=== PATIENT | female | born 1930 | race Caucasian/White ===

== ENCOUNTER 2017-01-22 09:58 | Inpatient (IN) | payer MEDICARE ==
[~2017-01-22] VITALS: Ht 162.6 cm; Wt 44.9 kg
[~2017-01-22 09:58] MED LIST: /ONDA4TA; CEPACOL; COLA100C2; COUM2.5T11 PO; DULC10SU2 PR; FRAGMIN; HALD5INJ2 PO; KLOR8TAB; LEVO25TABR; LISI5TAB; MILKSUS; MILKSUS PO; MIRA3350 PO; PLAV75TA2; ROPI1TA PO; SENO8.6T2 PO; THERGRAN; TYL325; TYLE325T5 PO; ULTR50TA PO; VICO5TAB; XOPE1.252; ZANT150T; ZOCO20TA
[2017-01-22] MEDS ORDERED: LORA-376 PO (10:19)
[2017-01-22] MEDS ORDERED: QUET5TAB PO (10:19)
[2017-01-22] MEDS ORDERED: QUET1TAB8 PO (10:19)
[2017-01-22] MEDS ORDERED: LORA1TAB12 PO (10:19)
[2017-01-22] MEDS ORDERED: NS 1,000 ML IV ONE (12:00)
[2017-01-22 12:53] LABS: BASO % 0.3 % (0.0-1.0); EOS # 0.2 K/mm3 (0.0-0.50); EOS % 0.9 % (0.0-3.0); LARGE UNSTAINED CELL # 0.1 K/mm3 (0.0-0.4); LARGE UNSTAINED CELL % 0.7 % (0.0-4.0); LYMPH # 0.7 K/mm3 (1.5-4.5); LYMPH % 3.6 % (24.0-44.0); MEAN CORPUSCULAR HEMOGLOBIN 30.2 pg (27.0-33.0); MEAN CORPUSCULAR HGB CONC 31.9 g/dl (32.0-36.5); MEAN CORPUSCULAR VOLUME 94.6 fl (80.0-96.0); MONO # 0.6 K/mm3 (0.0-0.8); MONO % 3.4 % (0.0-5.0); NEUTROPHILS # 15.1 K/mm3 (1.8-7.7); NEUTROPHILS % 91.1 % (36.0-66.0); PLATELET COUNT, AUTOMATED 165 k/mm3 (150-450); RED CELL DISTRIBUTION WIDTH 13.8 % (11.5-14.5); WHITE BLOOD COUNT 16.5 K/mm3 (4.0-10.0)
[2017-01-22 13:00] LABS: ALBUMIN 3.3 GM/DL (3.2-5.2); ALBUMIN/GLOBULIN RATIO 1.06 (1.00-1.93); ALKALINE PHOSPHATASE 72 U/L (45-117); ALT/SGPT 31 U/L (12-78); ANION GAP 10 MEQ/L (8-16); AST/SGOT 28 U/L (15-37); BILIRUBIN,DIRECT 0.1 MG/DL (0.0-0.2); BILIRUBIN,TOTAL 0.5 MG/DL (0.2-1.0); BLOOD UREA NITROGEN 44 MG/DL (7-18); CALCIUM LEVEL 9.2 MG/DL (8.8-10.2); CARBON DIOXIDE LEVEL 29 MEQ/L (21-32); CHLORIDE LEVEL 111 MEQ/L (98-107); CREATININE FOR GFR 1.51 MG/DL (0.55-1.02); GLOMERULAR FILTRATION RATE 34.9 (>32); GLUCOSE, FASTING 80 MG/DL (83-110); POTASSIUM SERUM 4.6 MEQ/L (3.5-5.1); SODIUM LEVEL 150 MEQ/L (136-145); TOTAL PROTEIN 6.4 GM/DL (6.4-8.2)
[2017-01-22 13:05] LABS: ABG BASE EXCESS 3.4 (-2.0-2.0); ABG PARTIAL PRESSURE CO2 42.7 mmHg (35.0-45.0); ABG PARTIAL PRESSURE O2 60.7 mmHg (75.0-100.0); ABG STANDARD HCO3 27.4 MEQ/L (22.0-26.0); ABG TOTAL CO2 29.3 MEQ/L (23.0-31.0); ABG pH (ARTERIAL) 7.435 UNITS (7.350-7.450)
--- NOTE | 2017-01-22 13:17 | REP ---
CT HEAD WITHOUT CONTRAST: HISTORY: Altered mental status. COMPARISON: 11/21/2014 Areas of decreased attenuation are present in the periventricular and subcortical white matter. This represents small vessel ischemic disease. There is no intraparenchymal hemorrhage, mass, or midline shift. The ventricular system and cortical sulci as well as subarachnoid space in the posterior fossa are dilated consistent with moderate volume loss. There is no extracerebral collection. The visualized sinuses are clear. IMPRESSION: 1. Small vessel ischemic disease. 2. Moderate volume loss. Signed by Michele Harp MD 01/22/2017 02:09 P
[2017-01-22 13:20] LABS: METHADONE URINE NEGATIVE (NEGATIVE)
--- NOTE | 2017-01-22 13:28 | REP ---
Portable chest: Single view. History: Altered mental status. Comparison study: June 07, 2014. Findings: Moderate elevation is again noted in the right hemidiaphragm. Mildly enlarged heart is seen. There are skin folds overlying the chest bilaterally. There is no evidence of pneumothorax or hydrothorax. No definite infiltrate is seen. Pulmonary vasculature is not increased. The aorta is calcific. Impression: Mild cardiomegaly. Elevated right hemidiaphragm unchanged. No acute disease. Signed by Isaiah Srinivasan MD 01/22/2017 04:25 P
[2017-01-22] MEDS ORDERED: cefTRIAXone SOD 1 GM in D5W MINI-BAG PLUS 50 ML IV ONE (13:30)
[2017-01-22] MEDS ORDERED: MOM 30ML SUSPENSION UDC PO PRN (14:45)
[2017-01-22] MEDS ORDERED: ONDANSETRON 4MG/2ML VIAL (J2405) IV PRN (14:45)
[2017-01-22] MEDS ORDERED: ONDANSETRON 4 MG TAB (S0181) PO PRN (14:45)
[2017-01-22] MEDS ORDERED: NS 0.45% 1,000 ML IV SCH ×2 (14:45→17:45)
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
[2017-01-22 16:23] VITALS: BP 162/98
[2017-01-22] MEDS: ACETAMINOPHEN TAB 650MG DOSE (2X325MG) PO PRN (16:39)
[2017-01-22] MEDS: LORazepam 1 MG TAB PO SCH (20:04)
[2017-01-22] MEDS: QUEtiapine FUMARATE 50 MG TAB PO SCH (20:04)
--- NOTE | 2017-01-22 20:35 | ECGEPIP ---
Stationary ECG Study [facility] - ED Test Date: 2017-01-22 Pat Name: SHERITA BROWN Department: Room: - Gender: F Junior Automation Engineer: oren : [id number] Requested By: Shelton Muller Order Number: [id number] Reading MD: Shelton Muller Measurements Intervals [place] Rate: 94 P: 91 TX: 194 QRS: 10 QRSD: 88 T: 31 QT: 351 QTc: 440 Interpretive Statements SINUS RHYTHM WITH OCCASIONAL SUPRAVENTRICULAR PREMATURE COMPLEXES LOW QRS VOLTAGE LIMB LEADS NONSPECIFIC ST T WAVE CHANGES CW 06/08/14 - RATE INCREASED NONSPECICIC ST T WAVE CHANGES Electronically Signed On 01-22-2017 20:35:06 EST by Shelton Muller
[2017-01-22 22:00] VITALS: BP 131/71
[2017-01-23 06:00] VITALS: BP 163/80
[2017-01-23 06:44] LABS: BASO % 0.3 % (0.0-1.0); EOS # 0.2 K/mm3 (0.0-0.50); EOS % 1.3 % (0.0-3.0); LARGE UNSTAINED CELL # 0.2 K/mm3 (0.0-0.4); LARGE UNSTAINED CELL % 1.7 % (0.0-4.0); LYMPH # 0.8 K/mm3 (1.5-4.5); LYMPH % 4.9 % (24.0-44.0); MEAN CORPUSCULAR HEMOGLOBIN 30.2 pg (27.0-33.0); MEAN CORPUSCULAR HGB CONC 32.2 g/dl (32.0-36.5); MEAN CORPUSCULAR VOLUME 93.9 fl (80.0-96.0); MONO # 0.5 K/mm3 (0.0-0.8); MONO % 4.6 % (0.0-5.0); NEUTROPHILS # 10.2 K/mm3 (1.8-7.7); NEUTROPHILS % 87.2 % (36.0-66.0); PLATELET COUNT, AUTOMATED 153 k/mm3 (150-450); RED CELL DISTRIBUTION WIDTH 13.8 % (11.5-14.5); WHITE BLOOD COUNT 11.6 K/mm3 (4.0-10.0)
[2017-01-23] MEDS ORDERED: D5W 1,000 ML IV SCH (07:00)
[2017-01-23 07:02] LABS: CALCIUM LEVEL 8.6 MG/DL (8.8-10.2); CREATININE FOR GFR 1.16 MG/DL (0.55-1.02); GLOMERULAR FILTRATION RATE 47.3 (>32); MAGNESIUM LEVEL 2.1 MG/DL (1.8-2.4); POTASSIUM SERUM 3.6 MEQ/L (3.5-5.1)
[2017-01-23] MEDS: QUEtiapine FUMARATE 100 MG TAB PO SCH ×2 (09:11→12:50)
[2017-01-23] MEDS: LORazepam 0.5 MG TAB PO SCH ×2 (09:12→12:50)
[2017-01-23] MEDS: cefTRIAXone SOD 1 GM in D5W MINI-BAG PLUS 50 ML IV SCH (12:57)
[2017-01-23 14:00] VITALS: BP 103/57
[2017-01-23] MEDS: D5W 1,000 ML IV SCH (17:00)
[2017-01-23] MEDS: QUEtiapine FUMARATE 50 MG TAB PO SCH (20:36)
[2017-01-23] MEDS: LORazepam 1 MG TAB PO SCH (20:36)
[2017-01-23 22:00] VITALS: BP 133/74
[2017-01-24 05:54] LABS: BASO % 0.5 % (0.0-1.0); EOS # 0.3 K/mm3 (0.0-0.50); EOS % 4.3 % (0.0-3.0); LARGE UNSTAINED CELL # 0.3 K/mm3 (0.0-0.4); LARGE UNSTAINED CELL % 4.4 % (0.0-4.0); LYMPH # 0.8 K/mm3 (1.5-4.5); LYMPH % 11.1 % (24.0-44.0); MEAN CORPUSCULAR HEMOGLOBIN 29.4 pg (27.0-33.0); MEAN CORPUSCULAR HGB CONC 32.2 g/dl (32.0-36.5); MEAN CORPUSCULAR VOLUME 91.3 fl (80.0-96.0); MONO # 0.4 K/mm3 (0.0-0.8); MONO % 6.2 % (0.0-5.0); NEUTROPHILS # 5.3 K/mm3 (1.8-7.7); NEUTROPHILS % 73.6 % (36.0-66.0); PLATELET COUNT, AUTOMATED 152 k/mm3 (150-450); RED CELL DISTRIBUTION WIDTH 13.3 % (11.5-14.5); WHITE BLOOD COUNT 7.2 K/mm3 (4.0-10.0)
[2017-01-24 06:00] VITALS: BP 136/75
[2017-01-24 06:04] LABS: ANION GAP 8 MEQ/L (8-16); BLOOD UREA NITROGEN 21 MG/DL (7-18); CALCIUM LEVEL 7.8 MG/DL (8.8-10.2); CARBON DIOXIDE LEVEL 31 MEQ/L (21-32); CHLORIDE LEVEL 102 MEQ/L (98-107); CREATININE FOR GFR 0.92 MG/DL (0.55-1.02); GLOMERULAR FILTRATION RATE > 60.0 (>32); GLUCOSE, FASTING 99 MG/DL (83-110); MAGNESIUM LEVEL 1.9 MG/DL (1.8-2.4); POTASSIUM SERUM 3.5 MEQ/L (3.5-5.1); SODIUM LEVEL 141 MEQ/L (136-145)
[2017-01-24] MEDS: D5W 1,000 ML IV SCH ×3 (06:35→17:32)
--- NOTE | 2017-01-24 08:52 | IPN ---
DATE: 01/23/2017 Patient seen and examined. She is nonverbal at baseline. Moans at the bedside. Patient's caregiver at the bedside, calms her down. She has purposeful movements but does not respond to questions. She had a fever of 101.3 at 1623 hours yesterday, current temperature is 97.1. Temperature 97.1, pulse 81, respiratory rate 16, blood pressure 163/80, 93% on room air. Generally, patient is demented, does not follow commands but with purposeful movement. Moans at the bedside and has her eyes closed and non-cooperative with examination. Edentulous. Lungs are clear to auscultation. No wheezing, rales or rhonchi. Dry mucous membranes. Heart: S1, S2, sinus rhythm. Abdomen is soft, nontender, nondistended. Extremities have no pitting edema. LABORATORY DATA: White count 11.6, hemoglobin 11, hematocrit 35, platelet count 153. Sodium currently is 147, potassium 3.6, chloride 109, bicarbonate 31, BUN 36, creatinine 1.16, glucose of 87. Troponin 0.18. Microbiology: Urine culture is pending. ASSESSMENT AND PLAN: This is an 86-year-old female with history of chronic dementia with 24/7 care at home, hyperlipidemia, hypothyroidism, no longer on replacement therapy was brought in as she was unable to be awakened and she was to have severe dehydration and a urinary tract infection (UTI). CURRENT ISSUES: 1. Severe dehydration, hypernatremia, acute kidney injury secondary to decrease in oral intake most likely secondary to severe Alzheimer's dementia. Patient is 24/7 care at home but despite prompting patient does not prompting patient does not take adequate oral intake. At this time, patient has been placed on intravenous (IV) fluids with recheck of metabolic panel every 6 hours with goal change in sodium of 10-12 mEq every 24 hours. Adjust patient's IV fluid rate according to the rate of plug overwrap machine tender the next 24 hours. She is currently nonconversant, non-cooperative and per the caregiver at the bedside at baseline. 2. Acute kidney injury secondary to severe dehydration due to poor oral intake and sever Alzheimer's dementia. Despite 24/7 care, patient refuses to take oral intake. I have discussed this case with the patient's daughter at bedside regarding possible percutaneous endoscopic gastrostomy (PEG) tube placement, which we all agree will not be beneficial as she is most likely to pull on it and will cause harm and suffering. At this time, she has deferred all decision making to the patient's and her father. 3. Urinary tract infection. Currently on IV ceftriaxone. Await culture results prior to changing. 4. Severe Alzheimer's dementia. Has 08/06 care at home. Most appropriate for DO NOT INTUBATE, DO NOT RESUSCITATE, but will discuss the patient's . She is currently still a FULL CODE. 5. Abnormal troponins most likely secondary to demand mediated ischemia from severe dehydration and urinary tract infection. Continue to monitor. She is currently demented, unable to provide any history. 6. Hypothyroidism. Not on replacement therapy.
[2017-01-24] MEDS: QUEtiapine FUMARATE 100 MG TAB PO SCH ×2 (09:19→11:56)
[2017-01-24] MEDS: LORazepam 0.5 MG TAB PO SCH ×2 (09:19→11:56)
[2017-01-24 09:30] VITALS: BP 124/68
[2017-01-24] MEDS: cefTRIAXone SOD 1 GM in D5W MINI-BAG PLUS 50 ML IV SCH (14:34)
[2017-01-24] MEDS: QUEtiapine FUMARATE 50 MG TAB PO SCH (20:21)
[2017-01-24] MEDS: LORazepam 1 MG TAB PO SCH (20:21)
[2017-01-24 22:00] VITALS: BP 124/60
[2017-01-25] MEDS: D5W 1,000 ML IV SCH ×2 (04:49→15:00)
[2017-01-25 06:00] VITALS: BP 145/76
[2017-01-25 06:16] LABS: BASO # 0.1 K/mm3 (0.0-0.2); BASO % 0.8 % (0.0-1.0); EOS # 0.3 K/mm3 (0.0-0.50); EOS % 4.1 % (0.0-3.0); LARGE UNSTAINED CELL # 0.3 K/mm3 (0.0-0.4); LARGE UNSTAINED CELL % 3.5 % (0.0-4.0); LYMPH % 13.4 % (24.0-44.0); MEAN CORPUSCULAR HEMOGLOBIN 29.7 pg (27.0-33.0); MONO # 0.6 K/mm3 (0.0-0.8); MONO % 7.4 % (0.0-5.0); NEUTROPHILS # 5.5 K/mm3 (1.8-7.7); NEUTROPHILS % 70.8 % (36.0-66.0); PLATELET COUNT, AUTOMATED 136 k/mm3 (150-450); RED CELL DISTRIBUTION WIDTH 13.1 % (11.5-14.5); WHITE BLOOD COUNT 7.7 K/mm3 (4.0-10.0)
[2017-01-25 06:51] LABS: ANION GAP 7 MEQ/L (8-16); BLOOD UREA NITROGEN 15 MG/DL (7-18); CALCIUM LEVEL 8.2 MG/DL (8.8-10.2); CARBON DIOXIDE LEVEL 29 MEQ/L (21-32); CHLORIDE LEVEL 101 MEQ/L (98-107); GLOMERULAR FILTRATION RATE > 60.0 (>32); GLUCOSE, FASTING 96 MG/DL (83-110); MAGNESIUM LEVEL 1.8 MG/DL (1.8-2.4); POTASSIUM SERUM 3.8 MEQ/L (3.5-5.1); SODIUM LEVEL 137 MEQ/L (136-145)
[2017-01-25] MEDS: LORazepam 0.5 MG TAB PO SCH ×2 (08:59→13:05)
[2017-01-25] MEDS: QUEtiapine FUMARATE 100 MG TAB PO SCH ×2 (08:59→13:05)
--- NOTE | 2017-01-25 12:51 | IPN ---
DATE: 01/24/2017 Patient is nonverbal at baseline. She is much more awake and alert this morning. Trying to get out bed and sitter trying to redirect her. Patient has a doll at the bedside, which she tends to. She is moaning, does not answer or follow commands. Temperature 96.8, pulse 71, respiratory rate 17, blood pressure 136/75, 95% on room air. Anicteric sclerae. No jaundice. No jugular venous distention. Lungs are clear to auscultation. No wheezing, rales or rhonchi. Heart: S1, S2, sinus rhythm. Abdomen is soft, nontender, nondistended. Extremities have no pitting edema. LABORATORY DATA: White count 7.3, hemoglobin 10, hematocrit 32, platelet count 152. Sodium 141, potassium 3.5, chloride 102, bicarbonate 31, BUN 21, creatinine 0.92, glucose of 99, magnesium of 1.9. MICROBIOLOGY: E coli, urine culture, which is pansensitive. Two sets of blood culture negative. ASSESSMENT AND PLAN: This is an 86-year-old female who is still a FULL CODE, history of chronic dementia with 24/7 care at home, hyperlipidemia, hypothyroidism, no longer on replacement was brought in due to inability to be awakened, was found to have severe dehydration and urinary tract infection with Escherichia coli. 1. Severe dehydration, hypernatremia, acute kidney injury secondary to decreased oral intake secondary to severe Alzheimer's dementia. Patient has 24/7 care at home and despite encouragement, patient refused to take oral intake and cannot be forced. She has presented with severe dehydration, which she responded well to intravenous (IV) fluid hydration. She is still not eating as much, according to the sitter at the bedside, ate about 10% of her food this morning. Therefore, we will continue with IV fluids for now. 2. E coli. 3. Acute metabolic encephalopathy secondary to severe dehydration and sepsis secondary to urinary tract infection (UTI). At this time, patient is being treated with ceftriaxone for UTI, continued on IV fluid hydration, which has significantly improved. 4. Severe Alzheimer's dementia. Currently difficult to manage, requiring a sitter. Patient responds well to her caregiver, who will be arriving later this morning. She is continued on as needed Ativan, Seroquel, full supportive care. DISPOSITION: May discharge home on Thursday if medically stable.
[2017-01-25] MEDS: cefTRIAXone SOD 1 GM in D5W MINI-BAG PLUS 50 ML IV SCH (13:05)
[2017-01-25] MEDS: LORazepam 1 MG TAB PO SCH (20:47)
[2017-01-25] MEDS: QUEtiapine FUMARATE 50 MG TAB PO SCH (20:47)
[2017-01-25 22:00] VITALS: BP 147/84
[2017-01-25] MEDS: ACETAMINOPHEN TAB 650MG DOSE (2X325MG) PO PRN (22:21)
[2017-01-26] MEDS: D5W 1,000 ML IV SCH ×2 (01:38→12:12)
[2017-01-26] MEDS ORDERED: LORazepam 0.5 MG TAB PO ONE (02:00)
[2017-01-26 05:59] LABS: BASO # 0.1 K/mm3 (0.0-0.2); BASO % 0.8 % (0.0-1.0); EOS # 0.3 K/mm3 (0.0-0.50); LARGE UNSTAINED CELL # 0.3 K/mm3 (0.0-0.4); LARGE UNSTAINED CELL % 3.6 % (0.0-4.0); LYMPH % 12.3 % (24.0-44.0); MEAN CORPUSCULAR HEMOGLOBIN 30.2 pg (27.0-33.0); MEAN CORPUSCULAR HGB CONC 33.5 g/dl (32.0-36.5); MEAN CORPUSCULAR VOLUME 89.9 fl (80.0-96.0); MONO # 0.8 K/mm3 (0.0-0.8); MONO % 9.4 % (0.0-5.0); NEUTROPHILS # 5.7 K/mm3 (1.8-7.7); NEUTROPHILS % 69.9 % (36.0-66.0); PLATELET COUNT, AUTOMATED 176 k/mm3 (150-450); RED CELL DISTRIBUTION WIDTH 13.1 % (11.5-14.5); WHITE BLOOD COUNT 8.2 K/mm3 (4.0-10.0)
[2017-01-26 06:00] VITALS: BP 150/86
[2017-01-26 06:19] LABS: ANION GAP 7 MEQ/L (8-16); BLOOD UREA NITROGEN 12 MG/DL (7-18); CALCIUM LEVEL 8.4 MG/DL (8.8-10.2); CARBON DIOXIDE LEVEL 32 MEQ/L (21-32); CHLORIDE LEVEL 102 MEQ/L (98-107); CREATININE FOR GFR 0.82 MG/DL (0.55-1.02); GLOMERULAR FILTRATION RATE > 60.0 (>32); GLUCOSE, FASTING 89 MG/DL (83-110); MAGNESIUM LEVEL 1.8 MG/DL (1.8-2.4); POTASSIUM SERUM 3.6 MEQ/L (3.5-5.1); SODIUM LEVEL 141 MEQ/L (136-145)
[2017-01-26] MEDS: QUEtiapine FUMARATE 100 MG TAB PO SCH ×2 (07:14→12:29)
[2017-01-26] MEDS: LORazepam 0.5 MG TAB PO SCH ×2 (07:14→12:29)
[2017-01-26] MEDS ORDERED: KEFL500C7 PO (07:29)
[2017-01-26] MEDS ORDERED: BACITAB3 PO (07:29)
--- NOTE | 2017-01-26 10:35 | IPN ---
DATE: 01/25/2017 The patient is much more awake and alert according to the sitter. She is difficult to be redirected. Apparently back to baseline according to family. Afebrile overnight. Not cooperative with interview. Temperature 98, pulse 86, respiratory rate 17, blood pressure 124/60, 94% on room air. Generally awake, alert, oriented, and responds to her name, but not cooperative with exam. She mumbles to herself and moans. Otherwise noncommunicative. Anicteric sclerae. No jaundice. Dry mucous membranes. Lungs are clear to auscultation. No wheezing, rales or rhonchi. Heart: S1, S2, sinus rhythm. Abdomen is soft, nontender, nondistended. Extremities have no pitting edema. LABORATORY DATA: White count 7.7, hemoglobin 10, hematocrit 31, platelet count 136 with admission platelet count of 165. Sodium 137, potassium 3.8, chloride 101, bicarbonate 29, BUN 15, creatinine 0.9, glucose of 96. Urine culture with E. Coli, pansensitive. ASSESSMENT AND PLAN: This is an 86-year-old, full code, the is the health care proxy, with history of chronic severe dementia requiring 24/7 care at home, hyperlipidemia, hypothyroidism not on replacement therapy, who was brought in due to altered mental status, unable to be awakened, and unresponsive who was found to have severe dehydration and urinary tract infection. 1. Severe dehydration, hypernatremia, acute kidney injury secondary to decrease in oral intake secondary to severe Alzheimer's dementia. The patient has 24/7 care at home, but despite prompting, the patient does not take enough adequate oral fluid intake. The patient has been placed on D5W with recheck of BMP every 6 hours. Will also change sodium of 10-12 mEq every 24 hours to prevent central pontine myelinolysis. The patient is back to her baseline. She is awake, alert, with appropriate slow movements. She may be discharged home in the morning if stable. 2. Acute kidney injury secondary to severe dehydration from poor oral intake due to severe Alzheimer's dementia despite 24/7 care at home. The patient refuses to take oral fluid intake. I have discussed this case with the patient's that at some point she will return again with severe dehydration and best served most likely with comfort measures only, DO NOT RESUSCITATE. At this time, he wanted to take time to speak with the rest of the family regarding the advanced directives as well as feeding tube. I have discussed with the patient's daughter on Thursday, percutaneous endoscopic gastrostomy (PEG) tube placement would most likely not be beneficial as the patient will most likely pull on it and cause harm and suffering. At this time, the patient's has deferred a decision for the rest of the family to discuss until Thursday. Otherwise the patient is medically stable for discharge on Thursday. 3. Urinary tract infection, currently on IV ceftriaxone, which appears to be pansensitive. May be discharged home on Levaquin. If we are able to obtain an urinalysis (UA) and the UA is clear, no further antibiotics as outpatient as it appears to be a simple UTI and not a complicated one. If unable to obtain a sample, will complete a 7 day course. 4. Severe Alzheimer's dementia. She has 24/7 care at home. The patient's is the health care proxy and has not decided on advanced directives. She is still currently a full code. 5. Abnormal troponin. Most likely secondary to demand mediated ischemia from UTI, severe dehydration and renal failure. Continue to monitor. Currently demented and unable to provide any complaints of chest pain, pressure, tightness, palpitations, lightheadedness, dizziness or near syncope. 6. Hypothyroidism. Not on replacement therapy. DISPOSITION: May discharged home in the morning.
--- NOTE | 2017-01-27 06:05 | DSES ---
DATE OF ADMISSION: 01/22/2017 DATE OF DISCHARGE: 01/26/2017 PRIMARY DISCHARGE DIAGNOSES: Dehydration due to severe Alzheimer's dementia with decreased oral intake. Hypernatremia with severe dehydration. Acute kidney injury secondary to severe dehydration from poor oral intake from severe Alzheimer's dementia requiring 24/7 care. Urinary tract infection, pansensitive. Severe Alzheimer's dementia. Abnormal troponin most likely demand mediated ischemic from urinary tract infection, dehydration and renal failure. DISCHARGE MEDICATIONS: - cephalexin 500 mg by mouth every 12 hours - Bacid one tablet by mouth twice daily - Tylenol 325 every 4 hours as needed for pain or fever - Ativan 0.5 by mouth twice daily - lorazepam 1 mg daily at bedtime - milk of magnesia 30 mL daily as needed - quetiapine fumarate 100 mg twice daily - quetiapine 50 mg daily at bedtime FOLLOWUP INSTRUCTIONS: Avoid dehydration. Encourage oral fluid intake of 2-3 liters daily. Patient's code status needs to be addressed. Per the , she is currently a FULL CODE. Will need to discuss with the family regarding changing code status as outpatient. HOSPITAL COURSE: This is an 86-year-old female with 24/7 care at home due to severe dementia, hyperlipidemia, hypothyroidism not on replacement brought in due to altered mental status, unable to be awakened and unresponsive at home. She was found to have severe dehydration, sodium level of 150, acute kidney injury due to decrease in oral intake from severe Alzheimer's dementia. Patient was given D5W, responded well with sodium level normalizing over the next 3 days to 141 on discharge. Patient's mentation improved after IV fluid hydration and treatment for urinary tract infection with ceftriaxone. Patient's white count improved from 16,000 to normal of 8.2. She remained afebrile from admission of 101.3 to 96.8 over the next few days. Mentation improved and she was awake and alert, slightly combative at the bedside but is usually manageable and redirectable when here caregiver arrives. Microbiology grew out E. Coli in the urine which was pansensitive. Patient's dehydration improved from peak of 152 to current sodium of 141. Creatinine was 1.5 on admission, 0.82 on discharge. Patient's was unable to make a decision regarding her code status at this time. I did stress to him that patient's dehydration will return, it is only a matter of time as she has very severe dementia and refuses to eat and drink at times. She is still a FULL CODE. Patient's who is a health care proxy has refused to make a decision about this as well. LABS ON DISCHARGE: White count 8.2, hemoglobin 10, hematocrit 31, platelet count 176. Sodium 141, potassium 3.6, chloride 102, bicarbonate 32, BUN 12, creatinine 0.82, glucose 89. Microbiology: E. Coli urine culture, two sets of blood cultures are negative. IMAGING STUDIES: Chest x-ray 01/22: Mild cardiomegaly. No acute disease. CT head shows small vessel ischemic disease and moderate volume loss. TIME SPENT ON DISCHARGE: 30 minutes. [facility]
== END 2017-01-26 12:40 | disposition home or self-care (01) | DRG 871 ==
LOC: M ED 11:01 → M ED INP 14:45 → M MSPAV 16:09
PROVIDERS: ADMIT Hospitalist; ATTEND General Practice
DX: A41.9 Sepsis, unspecified organism (principal); G93.41 Metabolic encephalopathy; N17.9 Acute kidney failure, unspecified; E87.0 Hyperosmolality and hypernatremia; N39.0 Urinary tract infection, site not specified; F02.81 Dementia in other diseases classified elsewhere, unspecified severity, with behavioral disturbance; G30.9 Alzheimer's disease, unspecified; Z79.899 Other long term (current) drug therapy; E87.5 Hyperkalemia; Z88.5 Allergy status to narcotic agent; B96.29 Other Escherichia coli [E. coli] as the cause of diseases classified elsewhere

== ENCOUNTER → 2017-07-28 | Outpatient (REF) | payer MEDICARE ==
[~2017-07-28] MED LIST changes: +BACITAB PO; -COUM2.5T11 PO; +COUM2.5T17 PO; +KEFL500C17 PO; +LORA0.5T11 PO; +LORA1TAB12 PO; +QUET1TAB8 PO; +QUET5TAB PO; -SENO8.6T2 PO; +SENO8.6T5 PO; -ULTR50TA PO; +ULTR50TA8 PO
[2017-07-28 11:07] LABS: MEAN CORPUSCULAR HEMOGLOBIN 31.2 pg (27.0-33.0); MEAN CORPUSCULAR HGB CONC 33.4 g/dl (32.0-36.5); MEAN CORPUSCULAR VOLUME 93.5 fl (80.0-96.0); RED CELL DISTRIBUTION WIDTH 13.4 % (11.5-14.5); WHITE BLOOD COUNT 6.5 K/mm3 (4.0-10.0)
[2017-07-28 11:22] LABS: ALBUMIN 3.4 GM/DL (3.2-5.2); ALBUMIN/GLOBULIN RATIO 1.31 (1.00-1.93); ALKALINE PHOSPHATASE 53 U/L (45-117); ALT/SGPT 18 U/L (12-78); ANION GAP 8 MEQ/L (8-16); AST/SGOT 16 U/L (15-37); BILIRUBIN,TOTAL 0.5 MG/DL (0.2-1.0); BLOOD UREA NITROGEN 28 MG/DL (7-18); CALCIUM LEVEL 8.4 MG/DL (8.8-10.2); CARBON DIOXIDE LEVEL 28 MEQ/L (21-32); CHLORIDE LEVEL 105 MEQ/L (98-107); CHOLESTEROL LEVEL 136 MG/DL (<200); CREATININE FOR GFR 0.59 MG/DL (0.55-1.02); GLOMERULAR FILTRATION RATE > 60.0 (>32); GLUCOSE, FASTING 92 MG/DL (83-110); POTASSIUM SERUM 4.2 MEQ/L (3.5-5.1); SODIUM LEVEL 141 MEQ/L (136-145); TRIGLYCERIDES LEVEL 125 MG/DL (<150)
== END ==
LOC: M SFHCPLAZ 08:18
PROVIDERS: ATTEND Internal Medicine
DX: I10 Essential (primary) hypertension (principal); E78.00 Pure hypercholesterolemia, unspecified; R94.6 Abnormal results of thyroid function studies; Z85.3 Personal history of malignant neoplasm of breast

== ENCOUNTER → 2018-11-24 | Outpatient (REF) | payer MEDICARE ==
[~2018-11-24] MED LIST changes: +MILK120011 PO; -MILKSUS PO
[2018-11-24 12:17] LABS: HEMOGLOBIN 13.2 g/dl (12.0-15.5); MEAN CORPUSCULAR HEMOGLOBIN 30.5 pg (27.0-33.0); MEAN CORPUSCULAR HGB CONC 32.2 g/dl (32.0-36.5); MEAN CORPUSCULAR VOLUME 94.7 fl (80.0-96.0); PLATELET COUNT, AUTOMATED 203 10^3/uL (150-450); RED BLOOD COUNT 4.33 10^6/uL (4.00-5.40); WHITE BLOOD COUNT 8.4 10^3/uL (4.0-10.0)
[2018-11-24 12:57] LABS: ALBUMIN 3.6 GM/DL (3.2-5.2); ALT/SGPT 21 U/L (12-78); BILIRUBIN,TOTAL 0.3 MG/DL (0.2-1.0); BLOOD UREA NITROGEN 27 MG/DL (7-18); CALCIUM LEVEL 8.8 MG/DL (8.8-10.2); CARBON DIOXIDE LEVEL 28 MEQ/L (21-32); CHLORIDE LEVEL 106 MEQ/L (98-107); CREATININE FOR GFR 0.72 MG/DL (0.55-1.30); GLOMERULAR FILTRATION RATE > 60.0 (>32); GLUCOSE, FASTING 70 MG/DL (70-100); MAGNESIUM LEVEL 2.3 MG/DL (1.8-2.4); POTASSIUM SERUM 4.5 MEQ/L (3.5-5.1); SODIUM LEVEL 141 MEQ/L (136-145); TOTAL PROTEIN 6.1 GM/DL (6.4-8.2)
== END ==
LOC: M SFHCPLAZ 08:47
PROVIDERS: ATTEND Internal Medicine
DX: I10 Essential (primary) hypertension (principal); R94.6 Abnormal results of thyroid function studies; R63.4 Abnormal weight loss

== ENCOUNTER → 2020-06-19 | Outpatient (REF) | payer MEDICARE ==
[~2020-06-19] MED LIST changes: -/ONDA4TA; -LORA0.5T11 PO; +LORA0.5T5 PO; -LORA1TAB12 PO; +LORA1TAB4 PO; +ONDA-1; +QUET100T2 PO; -QUET1TAB8 PO
[2020-07-16 14:20] LABS: HEMATOCRIT 43.2 % (36.0-47.0); HEMOGLOBIN 13.6 g/dl (12.0-15.5); RED BLOOD COUNT 4.35 10^6/uL (4.00-5.40)
[2020-07-16 14:21] LABS: MEAN CORPUSCULAR HEMOGLOBIN 31.3 pg (27.0-33.0); MEAN CORPUSCULAR HGB CONC 31.5 g/dl (32.0-36.5); MEAN CORPUSCULAR VOLUME 99.3 fl (80.0-96.0); PLATELET COUNT, AUTOMATED 198 10^3/uL (150-450)
[2020-08-01 13:42] LABS: ALT/SGPT 23 U/L (12-78); BILIRUBIN,TOTAL 0.3 MG/DL (0.2-1.0); BLOOD UREA NITROGEN 23 MG/DL (7-18); CALCIUM LEVEL 9.1 MG/DL (8.8-10.2); CARBON DIOXIDE LEVEL 32 MEQ/L (21-32); CHLORIDE LEVEL 108 MEQ/L (98-107); CREATININE FOR GFR 0.83 MG/DL (0.55-1.30); GLOMERULAR FILTRATION RATE > 60.0 (>32); GLUCOSE, FASTING 124 MG/DL (70-100); POTASSIUM SERUM 4.6 MEQ/L (3.5-5.1); SODIUM LEVEL 140 MEQ/L (136-145); TOTAL PROTEIN 6.5 GM/DL (6.4-8.2); VITAMIN B12 LEVEL 753 PG/ML (247-911)
== END ==
LOC: M SFHCPLAZ 16:57
PROVIDERS: ATTEND Internal Medicine
DX: F03.90 Unspecified dementia, unspecified severity, without behavioral disturbance, psychotic disturbance, mood disturbance, and anxiety (principal); I10 Essential (primary) hypertension; Z85.3 Personal history of malignant neoplasm of breast; R94.6 Abnormal results of thyroid function studies

== ENCOUNTER → 2020-12-24 | Outpatient (REF) | payer MEDICARE, MEDICAID ==
[~2020-12-24] MED LIST changes: +QUET50TA3 PO; -QUET5TAB PO
[2020-12-24 15:31] LABS: BASO # 0.1 10^3/uL (0.0-0.2); BASO % 1.1 % (0.0-1.0); EOS # 0.2 10^3/uL (0.0-0.5); EOS % 2.3 % (0.0-3.0); HEMOGLOBIN 13.7 g/dl (12.0-15.5); LYMPH # 1.7 10^3/uL (1.5-5.0); LYMPH % 22.4 % (24.0-44.0); MEAN CORPUSCULAR HEMOGLOBIN 30.9 pg (27.0-33.0); MEAN CORPUSCULAR HGB CONC 31.9 g/dl (32.0-36.5); MEAN CORPUSCULAR VOLUME 97.1 fl (80.0-96.0); MONO # 0.7 10^3/uL (0.0-0.8); MONO % 8.9 % (0.0-5.0); NEUTROPHILS # 4.8 10^3/uL (1.5-8.5); PLATELET COUNT, AUTOMATED 211 10^3/uL (150-450); RED BLOOD COUNT 4.43 10^6/uL (4.00-5.40); WHITE BLOOD COUNT 7.4 10^3/uL (4.0-10.0)
[2020-12-24 16:03] LABS: ALBUMIN 3.9 GM/DL (3.2-5.2); ALT/SGPT 22 U/L (12-78); BILIRUBIN,TOTAL 0.2 MG/DL (0.2-1.0); BLOOD UREA NITROGEN 23 MG/DL (7-18); CALCIUM LEVEL 9.9 MG/DL (8.8-10.2); CARBON DIOXIDE LEVEL 33 MEQ/L (21-32); CHLORIDE LEVEL 104 MEQ/L (98-107); CREATININE FOR GFR 0.75 MG/DL (0.55-1.30); GLOMERULAR FILTRATION RATE > 60.0 (>32); GLUCOSE, FASTING 100 MG/DL (70-100); POTASSIUM SERUM 5.1 MEQ/L (3.5-5.1); SODIUM LEVEL 141 MEQ/L (136-145); TOTAL PROTEIN 6.8 GM/DL (6.4-8.2)
== END ==
LOC: M SFHCPLAZ 13:42
PROVIDERS: ATTEND Internal Medicine
DX: I10 Essential (primary) hypertension (principal); Z85.3 Personal history of malignant neoplasm of breast